=== PATIENT | male | born 1965 | race Caucasian/White ===

== ENCOUNTER 2019-08-28 13:46 | Emergency (ER) | payer SELFPAY ==
[2019-08-28] MEDS ORDERED: ACETAMINOPHEN 500 MG TABLET (FP) PO ONE (13:58)
[2019-08-28] MEDS ORDERED: ALBUTEROL SO4 2.5/IPRATROPIUM 0.5 INH SOL 3 ML VIAL.NEB. NEB ONE (13:58)
[2019-08-28 14:01] VITALS: BP 110/78; PULSE 106; TEMP 102.8
--- NOTE | 2019-08-28 14:03 | PDOC ---
Rapid Medical Evaluation Chief Complaint: Cold Symptoms Time Seen by Provider: 08/28/19 13:56 Medical Evaluation: Allergies Allergy/AdvReac Type Severity Reaction Status Date / Time No Known Allergies Allergy Verified 08/28/19 13:56 Vital Signs Temp Pulse Resp BP Pulse Ox 102.8 F H 106 H 18 110/78 96 08/28/19 13:54 08/28/19 13:54 08/28/19 13:54 08/28/19 13:54 08/28/19 13:54 08/28/19 14:02 I performed a brief in-person evaluation of this patient. Pt is a 54 y/o male with cough, fever for the last 6 days. No COVID contacts and no travel. Pertinent physical exam findings: + fever, rales b/l bases, no retractions I have ordered the following: cxr, tylenol, duoneb Patient to proceed to [facility] for further evaluation. Discharge Disposition - Diagnosis Cough - Referrals - Patient Instructions - Post Discharge Activity
--- NOTE | 2019-08-28 14:15 | PDOC ---
History of Present Illness - General Chief Complaint: Cold Symptoms Stated Complaint: COUGH/FEVER Time Seen by Provider: 08/28/19 13:56 History Source: Patient Exam Limitations: No Limitations - History of Present Illness Initial Comments: 54yo M presents with complaint of Fever/chills and cough x 5 days. Pt states that he has been resting and drinking lots of fluid, but has not been feeling much better. Pt denies recent travel out of the country or exposure to Covid pts. 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 08/28/19 14:22 08/28/19 14:28 Is this a multiple visit Asthma Patient?: No Past History - Travel Traveled outside of the country in the last 30 days: No - Past Medical History Allergies/Adverse Reactions: Allergies Allergy/AdvReac Type Severity Reaction Status Date / Time No Known Allergies Allergy Verified 08/28/19 13:56 Home Medications: Ambulatory Orders Acetaminophen [Tylenol] 650 mg PO QID PRN #50 capsule 08/28/19 Azithromycin [Zithromax -] 250 mg PO UTDICT #6 tab 08/28/19 - Psycho Social/Smoking Cessation Hx Smoking History: Never smoked Information on smoking cessation initiated: No Review of Systems - Review of Systems Able to Perform ROS?: Yes Is the patient limited Malagasy proficient: No Constitutional: Yes: Loss of Appetite HEENTM: Yes: Nose Congestion, Throat Pain Respiratory: Yes: Cough Cardiac (ROS): No: Symptoms Reported, See HPI, Chest Pain, Edema, Irregular Heart Rate, Lightheadedness, Palpitations, Syncope, Chest Tightness, Other *Physical Exam - Vital Signs Last Vital Signs Temp Pulse Resp BP Pulse Ox 102.8 F H 106 H 18 110/78 96 08/28/19 13:54 08/28/19 13:54 08/28/19 13:54 08/28/19 13:54 08/28/19 13:54 - Physical Exam General Appearance: Yes: Appropriately Dressed HEENT: negative: EOMI, MANJIT, Normal ENT Inspection, Normal Voice, Symmetrical, TMs Normal, Pharynx Normal, Pale Conjunctivae, Photophobia, Scleral Icterus (R), Scleral Icterus (L), Muffled/Hoarse voice, Pharyngeal Erythema, Tonsillar Exudate, Tonsillar Erythema, Nasal Congestion, Rhinorrhea, Sinus Tenderness, Orbits, Hearing Decreased, Hearing Grossly Normal, TM Bulging, TM Dull, TM Erythema, Lesions, Blanchard, Excessive drooling, Thrush, Other Neck: negative: Tender, Trachea midline, Normal Thyroid, Rigid, Supple, Carotid bruit, Decreased range of motion, Stridor, Lymphadenopathy (R), Lymphadenopathy (L), Rigidity, Tender lateral, Tender midline, Thyromegaly, Other Respiratory/Chest: negative: Chest Tender, Lungs Clear, Normal Breath Sounds, Respiratory Distress, Accessory Muscle Use, Labored Respiration, Rapid RR, Decr eased Breath Sounds, Paradoxal Breathing, Crackles, Rales, Rhonchi, Stridor, Wheezing, Hyperresonant, Dullness, Plerual Rub, Other Medical Decision Making - Medical Decision Making CXR: Shows possible early infiltrates RLL Dx: Most likely coronavirus infection, but some concerns for early pneumonia. Plan: Pt does not meet criteria for wick virus testing, but most likely has infection. Will treat with Z-landon due to possible early pneumonia findings Pt advised to self quarantine for 2 weeks Lots of fluids and rest 08/28/19 14:33 08/28/19 14:33 08/28/19 14:36 Discharge - Discharge Information Problems reviewed: Yes Clinical Impression/Diagnosis: Cough, Viral syndrome, Pneumonia Condition: Stable Disposition: HOME - Admission No - Additional Discharge Information Prescriptions: Acetaminophen [Tylenol] 650 mg PO QID PRN #50 capsule PRN Reason: Fever Azithromycin [Zithromax -] 250 mg PO UTDICT #6 tab - Follow up/Referral - Patient Discharge Instructions Patient Printed Discharge Instructions: DI for Viral Upper Respiratory Infection -- Adult, [facility]-Coronavirus Instructions - Post Discharge Activity Work/Back to School Note: Back to Work
== END 2019-08-28 15:25 | disposition home or self-care (01) ==
LOC: JER 13:46
DX: J12.9 Viral pneumonia, unspecified (principal); B34.9 Viral infection, unspecified
CPT/HCPCS: 71045-TC-FY; 99283-25